=== PATIENT | male | born 1955 | race Caucasian/White ===

== ENCOUNTER → 2017-08-04 | Day surgery (SDC) | payer BC ==
[2017-08-03 13:19] LABS: BASOPHILS % 0.6 % (0.0-1.0); EOSINOPHILS # (AUTO) 0.1 (0.0-0.4); EOSINOPHILS % 1.5 % (0.0-6.0); HEMATOCRIT 49.4 % (38.2-49.6); LYMPHOCYTES # (AUTO) 2.3 (1.0-3.2); LYMPHOCYTES % 33.8 % (18.0-39.1); MEAN CORPUSCULAR HEMOGLOBIN 29.6 pg (28-32); MEAN CORPUSCULAR HGB CONC 34.4 g/dL (31-35); MEAN CORPUSCULAR VOLUME 86.1 fL (81-99); MONOCYTES # (AUTO) 0.7 (0.2-0.8); MONOCYTES % 10.7 % (4.4-11.3); NEUTROPHILS # (AUTO) 3.6 (2.1-6.9); PLATELET COUNT 238 x10e3/uL (140-360); RED BLOOD COUNT 5.74 x10e6/uL (4.3-5.7); RED CELL DISTRIBUTION WIDTH 12.5 % (11.7-14.4)
[2017-08-03 13:45] LABS: INR 0.97; PROTHROMBIN TIME 12.1 seconds (11.9-14.5)
[2017-08-03 13:46] LABS: ALBUMIN 3.8 g/dL (3.5-5.0); ALBUMIN/GLOBULIN RATIO 1.2 (0.8-2.0); ANION GAP 13.8 mmol/L (8-16); CALCIUM 9.5 mg/dL (8.4-10.2); CHOL/HDL RATIO 4.1 (3.9-4.7); CREATININE, SERUM 1.23 mg/dL (0.72-1.25); POTASSIUM 4.8 mmol/L (3.5-5.1)
[2017-08-04] VITALS (8 sets, daily range): BP systolic 125–160; BP diastolic 78–90
[~2017-08-04] VITALS: Ht 177.8 cm; Wt 106.6 kg
[~2017-08-04] MED LIST: ALPRAZOLAM 0.5 MG TAB ONE; ASPIRIN 325 MG TAB ONE; ASPIRIN81 MG PO; ATORVASTATIN CA20 MG PO; BIVALIRUDIN 250 MG/VIAL IV ONE; DIPHENHYDRAMINE HCL 25 MG CAP ONE; FENOFIBRATE145 MG PO; FENTANYL CITRATE/PF 100MCG/2 ML INJ ONE; FISH OIL 1,2001 EAC1 PO; HEPARIN SOD/SOD CHLORIDE 2,000 ML ONE; IOPAMIDOL 370 MG/ML 200 ML INFUS..BTL INJ ONE; LEVOTHYROXINE50 MCG PO; LIDOCAINE HCL 2% LOCAL 20 ML VIAL ONE; MIDAZOLAM HCL 2 MG/2 ML VIAL ONE; OMEPRAZOLE40 MG PO; PRASUGREL 10 MG TAB ONE; SODIUM CHLORIDE 0.9% 1000ML 1,000 ML ONE; SODIUM CHLORIDE 0.9% 50ML 50 ML ONE; VERAPAMIL HCL 2.5 MG/ML 2 ML VIAL ONE; VITAMIN D32000 UNI1 PO
--- NOTE | 2017-08-04 10:15 | Operative Report ---
DATE OF PROCEDURE: August 04, 2017 INDICATIONS: Coronary artery disease. Abnormal stress test with inferior ischemia. PROCEDURES PERFORMED 1. Left heart catheterization, selective coronary angiography, left ventriculography. 2. Percutaneous transluminal coronary angioplasty and drug-eluting stent placement of the mid right coronary artery. 3. Deployment right wrist TR Band. COMPLICATION: None. RECOMMENDATIONS: Dual antiplatelet therapy for at least 6 months. Access was obtained in the right radial artery using ultrasound guidance. A 5-Chinese sheath was placed. Left coronary artery had mild disease. Left anterior descending circumflex diffuse 20% to 30% stenosis. Right coronary artery dominant vessel, mid 95% stenosis, with MARIANNE-2 flow. Distal right coronary artery 50%. LV end-diastolic pressure was 10. LV systolic function 65%. A decision was made to intervene on the right coronary artery. The patient received intravenous Angiomax and oral Effient for anticoagulation. The right coronary was cannulated using an IR 5-Chinese guiding catheter. A short wire was advanced across the lesion for support. Predilatation with 2.5-mm balloon following which a single 3.5 x 38 mm [place] [employer] Synergy stent was deployed at 24 atmospheres. Excellent end result, MARIANNE-3 flow, zero percent residual stenosis. No complications. Right wrist TR Band applied. Patient discharged home same day. Job#: [id number]
== END | disposition home or self-care (01) ==
LOC: CATH LAB 07:24
PROVIDERS: ATTEND Internal Medicine Interventional Cardiology
DX: I25.119 Atherosclerotic heart disease of native coronary artery with unspecified angina pectoris (principal); R94.39 Abnormal result of other cardiovascular function study; E78.5 Hyperlipidemia, unspecified; F17.210 Nicotine dependence, cigarettes, uncomplicated; Z01.812 Encounter for preprocedural laboratory examination; Z79.82 Long term (current) use of aspirin; Z68.33 Body mass index [BMI] 33.0-33.9, adult; Z82.49 Family history of ischemic heart disease and other diseases of the circulatory system
CPT/HCPCS: 36415; 80053; 80061; 85025; 85610; 92928; 93458; C1874; C1887; J0583; J2001; J2250; J7030; Q9967; 36140; 77002; C9600